=== PATIENT | female | born 1985 | race Caucasian/White ===

== ENCOUNTER 2017-05-06 20:23 | Emergency (ER) | payer OTHER ==
[2017-05-06 21:05] LABS: BASOPHILS 0.2 % (0-2); EOSINOPHILS 1.9 % (0-7); HEMATOCRIT 35.9 % (36.0-48.0); HEMOGLOBIN 12.3 g/dL (12-16); IMMATURE GRANULOCYTES 0.2 % (0-5); LYMPHOCYTES 40.7 % (15-50); MCH 29.1 pg (26.0-34.0); MCHC 34.3 g/dL (31.0-37.0); MCV 85.1 fL (80.0-100.0); MEAN PLATELET VOLUME 9.4 fL (7.4-10.4); MONOCYTES 5.7 % (2-11); NEUTROPHILS 51.3 % (40-80); PLATELET COUNT 225 10x3/uL (130-400); RBC 4.22 10x6/uL (4.00-5.40); RDW 12.6 % (11.5-14.5); WBC 8.4 10x3/uL (4.8-10.8)
[2017-05-06 21:15] LABS: APPEARANCE CLEAR (CLEAR); BILIRUBIN NEGATIVE (NEGATIVE); COLOR STRAW (YELLOW); GLUCOSE NEGATIVE (NEGATIVE); KETONE NEGATIVE (NEGATIVE); NITRITE NEGATIVE (NEGATIVE); PROTEIN NEGATIVE (NEGATIVE); SPECIFIC GRAVITY 1.015 (1.005-1.020); UROBILINOGEN NORMAL (NORMAL)
[2017-05-06 21:18] LABS: ALBUMIN 3.8 g/dL (3.4-5.0); ALKALINE PHOSPHATASE 56 U/L (46-116); ALT (SGPT) 16 U/L (10-68); BACTERIA FEW /hpf (NONE SEEN); BILIRUBIN - TOTAL 0.17 mg/dL (0.2-1.3); CALC OSMOLALITY 276 mosm/kg (275-300); CARBON DIOXIDE 28.1 mmol/L (21.0-32.0); CHLORIDE - SERUM 105 mmol/L (98-107); CREATININE - SERUM 0.8 mg/dL (0.6-1.3); GLUCOSE 107 mg/dL (74-106); HCG URINE POSITIVE (NEGATIVE); POTASSIUM - SERUM 4.8 mmol/L (3.5-5.1); PROTEIN - SERUM 7.7 g/dL (6.4-8.2); RED CELLS - URINE 0-5 /hpf (0-5); SODIUM 138 mmol/L (136-145); WHITE CELLS - URINE RARE /hpf (0-5); eGFR NON AFRICAN AMERICAN 90 mL/min (90-120)
[2017-05-06 21:20] LABS: UREA NITROGEN 16 mg/dL (7-18)
[2017-05-06 21:40] LABS: HCG - QUANTITATIVE (MATERNAL) 253 mIU/mL
== END 2017-05-06 22:42 | disposition home or self-care (01) ==
LOC: D.ER 20:23
PROVIDERS: Family Medicine
DX: O20.0 Threatened abortion (principal); Z3A.00 Weeks of gestation of pregnancy not specified

== ENCOUNTER 2018-01-14 05:42 | Inpatient (IN) | payer OTHER ==
[~2018-01-14] VITALS: Ht 165.1 cm; Wt 59.9 kg
--- NOTE | ~2018-01-14 | OP ---
PATIENT NAME: THOMAS WILSON MEDICAL RECORD: [id number] :87 LOCATION:[id number] ADMISSION DATE:01/14/18 SURGEON: AJIT JIN MD DATE OF OPERATION: 01/14/2018 PREDELIVERY DIAGNOSIS: Active labor at term. POSTDELIVERY DIAGNOSES: 1. Mother delivered at term. 2. hemorrhage. 3. Maternal trauma. PROCEDURE: Vaginal delivery with repair of vaginal laceration. ATTENDING: Ajit Jin MD ANESTHESIOLOGIST: Dr. Bey. ANESTHETIC: Continuous lumbar epidural. FINDINGS: Viable female in EZEQUIEL presentation, nuchal cord times x1, reduced on the perineum. Apgars 9 and 9, weight 8 pounds 4 ounces. Perineal laceration extending to the anal verge with an intact anal sphincter. There are two lacerations extending to the vaginal sulcus on the patient's right and left side, starting at the 5 and 7 o'clock positions respectively. Both exposed vaginal arteries. Repair was affected with 4-0 chromic for the perineal body and anal verge, 2-0 chromic for the deeper tissues and the vaginal wall lacerations. Vaginal packing and Martinez catheter is placed at the end of this repair. The placenta was delivered spontaneously and intact. EBL was 800 cc to 1 liter. DISPOSITION: Mother was recovered in the delivery room at this time, will receive 2 units of packed red blood cells and will receive fluid bolus. The infant is doing well and in room with mother. TRANSINT:[id number] Voice Confirmation ID: [id number] DOCUMENT ID: [id number] AJIT JIN MD at 0906 CC: [id number] DICTATION DATE: 01/14/18 1227 SCHEDULE MAKER: 01/14/18 1306 ADM IN [place] [id number] [place] [id number]
[2018-01-14] MEDS ORDERED: PRENATAL COMPLE1 TAB PO (06:30)
[2018-01-14 06:42] VITALS: BP 128/82; Ht 165.1 cm; Wt 59.9 kg
[2018-01-14 07:01] LABS: HEMATOCRIT 35.9 % (36.0-48.0); HEMOGLOBIN 12.3 g/dL (12-16); MCH 29.6 pg (26.0-34.0); MCHC 34.3 g/dL (31.0-37.0); MCV 86.5 fL (80.0-100.0); MEAN PLATELET VOLUME 11.1 fL (7.4-10.4); RBC 4.15 10x6/uL (4.00-5.40); RDW 12.7 % (11.5-14.5)
[2018-01-14 08:01] LABS: APPEARANCE HAZY (CLEAR); BACTERIA MODERATE /hpf (NONE SEEN); BILIRUBIN NEGATIVE (NEGATIVE); COLOR YELLOW (YELLOW); EPITHELIAL CELLS 0-5 /hpf (0-5); GLUCOSE NEGATIVE (NEGATIVE); KETONE NEGATIVE (NEGATIVE); MUCUS <1+ /lpf (NONE SEEN); NITRITE NEGATIVE (NEGATIVE); PROTEIN NEGATIVE (NEGATIVE); RED CELLS - URINE 0-5 /hpf (0-5); SPECIFIC GRAVITY 1.005 (1.005-1.020); UROBILINOGEN NORMAL (NORMAL)
[2018-01-14 13:38] LABS: HEMATOCRIT 29.8 % (36.0-48.0); HEMOGLOBIN 9.9 g/dL (12-16); MCH 29.3 pg (26.0-34.0); MCHC 33.2 g/dL (31.0-37.0); MCV 88.2 fL (80.0-100.0); MEAN PLATELET VOLUME 10.8 fL (7.4-10.4); RBC 3.38 10x6/uL (4.00-5.40); RDW 13.1 % (11.5-14.5)
[2018-01-14 13:39] LABS: WBC 15.6 10x3/uL (4.8-10.8)
[2018-01-14 19:25] VITALS: BP 113/69
[2018-01-14 22:42] VITALS: BP 107/64
[2018-01-15 03:06] VITALS: BP 109/62
[2018-01-15 04:56] LABS: HEMATOCRIT 26.2 % (36.0-48.0); HEMOGLOBIN 9.1 g/dL (12-16); MCH 29.9 pg (26.0-34.0); MCHC 34.7 g/dL (31.0-37.0); MEAN PLATELET VOLUME 10.8 fL (7.4-10.4); RBC 3.04 10x6/uL (4.00-5.40); RDW 13.2 % (11.5-14.5); WBC 11.9 10x3/uL (4.8-10.8)
[2018-01-15 05:09] LABS: MCV 86.2 fL (80.0-100.0)
[2018-01-15 06:13] LABS: RAPID PLASMA REAGIN Non Reactive (Non Reactive)
[2018-01-15 07:45] VITALS: BP 107/67
[2018-01-15 12:09] VITALS: BP 115/60
[2018-01-15 15:30] VITALS: BP 112/63
[2018-01-15 17:45] VITALS: BP 111/76
[2018-01-15 20:30] VITALS: BP 102/61
[2018-01-16 07:40] VITALS: BP 111/67
== END 2018-01-16 10:52 | disposition home or self-care (01) | DRG 774 ==
LOC: D.LDO 05:42 → D.LD 05:53 → D.WS 01-15 17:00
PROVIDERS: Obstetrics & Gynecology
PROC: 10E0XZZ Delivery of Products of Conception, External Approach (ICD-10-PCS; principal; 2018-01-14)
PROC: 10907ZC Drainage of Amniotic Fluid, Therapeutic from Products of Conception, Via Natural or Artificial Opening (ICD-10-PCS; 2018-01-14)
PROC: 0HQ9XZZ Repair Perineum Skin, External Approach (ICD-10-PCS; 2018-01-14)
DX: O48.0 Post-term pregnancy (principal); O72.1 Other immediate postpartum hemorrhage; O70.0 First degree perineal laceration during delivery; Z3A.40 40 weeks gestation of pregnancy; Z37.0 Single live birth